=== PATIENT | female | born 1990 | race Hispanic/Latino ===

== ENCOUNTER 2018-02-03 12:45 | Inpatient (IN) | payer MEDICAID ==
[~2018-02-03] VITALS: Ht 162.6 cm; Wt 83.0 kg
[~2018-02-03 12:45] MED LIST: FLUC100T8 PO; GLIP5TAB PO; LISI-617 PO; METF500T PO
[2018-02-03] MEDS ORDERED: LACTATED RINGERS 1000ML 1,000 ML IV PRN (13:14)
[2018-02-03 13:25] LABS: BASOPHILS % (AUTO) 0.3 % (0.0-5.0); EOSINOPHILS % (AUTO) 1.1 % (0.0-8.0); HEMATOCRIT 34.5 % (36-48); LYMPHOCYTES % (AUTO) 23.2 % (21.0-51.0); MEAN CORPUSCULAR HEMOGLOBIN 29.4 pg (27.0-33.0); MEAN CORPUSCULAR HGB CONC 34.1 g/dL (32.0-36.0); MEAN CORPUSCULAR VOLUME 86.2 fL (79-99); MONOCYTES % (AUTO) 5.6 % (3.0-13.0); NEUTROPHILS % (AUTO) 69.8 % (40.0-77.0); PLATELET COUNT (AUTO) 283 K/uL (130-400); RED BLOOD CELL COUNT(AUTO) 4.01 MIL/uL (4.00-5.50); WHITE BLOOD COUNT (AUTO) 9.1 K/uL (4.8-10.8)
[2018-02-03 13:29] LABS: APPEARANCE,URINE Clear (CLEAR); BILIRUBIN,URINE Negative (NEGATIVE); COLOR,URINE Yellow (YELLOW); GLUCOSE, URINE (UA) Negative (NEGATIVE); KETONES,URINE Trace mg/dL (NEGATIVE); LEUKOCYTE ESTERASE ,URINE Small (NEGATIVE); NITRATE,URINE Negative (NEGATIVE); OCCULT BLOOD,URINE Moderate (NEGATIVE); PROTEIN,URINE 300 (NEGATIVE)
[2018-02-03 13:32] LABS: CREATININE 0.7 mg/dL (0.5-1.5); POTASSIUM 3.8 mmol/L (3.5-5.1)
[2018-02-03 13:34] LABS: INR 0.89 (0.85-1.15); PARTIAL THROMBOPLASTIN TIME 26.2 SEC (26.3-35.5); PROTHROMBIN TIME 9.4 SEC (9.6-11.6)
[2018-02-03 13:35] LABS: AMPHET/METH SCREEN,URINE NEGATIVE (NEGATIVE); BARBITURATE SCREEN, URINE NEGATIVE (NEGATIVE); BENZODIAZEPINES SCREEN,URINE NEGATIVE (NEGATIVE); CANNABINOID SCREEN,URINE NEGATIVE (NEGATIVE); COCAINE SCREEN,URINE NEGATIVE (NEGATIVE); OPIATE SCREEN,URINE NEGATIVE (NEGATIVE); PHENCYCLIDINE SCREEN,URINE NEGATIVE (NEGATIVE)
[2018-02-03 13:40] LABS: ALBUMIN 2.4 g/dL (3.5-5.0); BILIRUBIN,TOTAL 0.3 mg/dL (0.2-1.0); TOTAL PROTEIN, SERUM 7.2 g/dL (6.0-8.3); URIC ACID 4.7 mg/dL (2.6-7.2)
[2018-02-03] MEDS ORDERED: MAGNESIUM SULFATE 1,000 ML IV PRN ×2 (13:48→16:39)
[2018-02-03] MEDS ORDERED: LACTATED RINGERS 1000ML 1,000 ML IV SCH ×4 (13:48→16:39)
[2018-02-03 13:54] LABS: RBC,URINE TNTC /HPF (0-1)
[2018-02-03 13:55] LABS: BACTERIA,URINE Rare /HPF (None Seen); SQUAMOUS EPITHELIAL CELL,UR Few /HPF (0-2)
[2018-02-03] MEDS ORDERED: PHARMACY COMMUNICATION MISC SCH (14:00)
[2018-02-03] MEDS ORDERED: CELESTONE SOLUSPAN 6 MG/ML 5ML VIAL IM SCH (14:00)
[2018-02-03] MEDS ORDERED: CALCIUM GLUCONATE 1 GM/10 ML VIAL IVP PRN ×2 (14:00→16:45)
[2018-02-03] MEDS ORDERED: MAGNESIUM 4GM PREMIX 100ML 100 ML IV PRN ×2 (14:00→16:45)
[2018-02-03] MEDS ORDERED: LABETALOL HCL 5 MG/ML 20ML VIAL IV ONE (14:07)
[2018-02-03] MEDS ORDERED: LABETALOL HCL 5 MG/ML 20ML VIAL IV SCH (14:15)
[2018-02-03] MEDS ORDERED: CEFAZOLIN SODIUM 1 GM VIAL ONE (15:27)
[2018-02-03] MEDS ORDERED: CEFAZOLIN SODIUM 1 GM VIAL IVP PRN (15:30)
[2018-02-03] MEDS ORDERED: DURAMORPH PF1 MG/ML 10ML AMP IV ONE (15:34)
[2018-02-03] MEDS ORDERED: SENSORCAINE/DEXT/PF 0.75% 2ML AMP IJ ONE (15:34)
[2018-02-03 15:42] LABS: HEMOGLOBIN A1C 7.8 % (4.0-6.0)
[2018-02-03] MEDS ORDERED: CARBOPROST TROMETHAMINE 250 MCG/ML AMP IM ONE (15:53)
[2018-02-03] MEDS ORDERED: DEXAMETHASONE SOD PHOSPHATE 10MG/ML 1ML VIAL ONE (16:19)
[2018-02-03] MEDS ORDERED: OXYTOCIN 10 USP UNITS/ML ONE (16:19)
[2018-02-03] MEDS ORDERED: OXYTOCIN-LR 20 UNITS/1000 ML 1,000 ML IV PRN (16:39)
[2018-02-03] MEDS ORDERED: PROMETHAZINE HCL 25 MG/ML 1ML AMPULE IM PRN ×2 (16:45→19:00)
[2018-02-03] MEDS ORDERED: MEPERIDINE-PF 75 MG/ML SYG IM PRN (16:45)
[2018-02-03] MEDS ORDERED: LABETALOL HCL 5 MG/ML 20ML VIAL IV PRN (16:45)
[2018-02-03] MEDS ORDERED: OXYTOCIN 10 USP UNITS/ML IV PRN (16:45)
[2018-02-03] MEDS ORDERED: CALDOLOR 800MG+NS 250ML 250 ML IV ONE (16:58)
[2018-02-03] MEDS ORDERED: LABETALOL 20 MG/4 ML DISP.SYRIN IV PRN (17:00)
[2018-02-03] MEDS: INSULIN HUMULIN R 100 UNIT/ML 3ML SQ SCH ×2 (17:11→23:00)
[2018-02-03] MEDS ORDERED: ONDANSETRON HCL MDV 20ML 2 MG/ML VIAL IVP PRN ×2 (19:00)
[2018-02-03] MEDS ORDERED: MORPHINE SULFATE 4 MG/1ML SYG IVP PRN (19:00)
[2018-02-03] MEDS ORDERED: METOCLOPRAMIDE 10 MG/2 ML VIAL IVP PRN (19:00)
[2018-02-03] MEDS ORDERED: HYDROCODONE/ACETAMINOPHEN 5/325 MG TAB PO PRN ×2 (19:00)
[2018-02-03] MEDS ORDERED: DiphenhydrAMINE HCL 50 MG/ML VIAL IVP PRN (19:00)
[2018-02-03] MEDS ORDERED: EPHEDRINE SULFATE 50 MG/ML AMPULE IVP PRN (19:00)
[2018-02-03] MEDS ORDERED: NALOXONE HCL 0.4 MG/1 ML ML IVP PRN ×2 (19:00)
[2018-02-03] MEDS ORDERED: MORPHINE SULFATE 2 MG/ML 1ML SYG IVP PRN (19:00)
[2018-02-03] MEDS ORDERED: ONDANSETRON HCL 4 MG/2 ML 8 MG in SODIUM CHLORIDE 0.9% 50 ML IVP NR (19:00)
[2018-02-04] VITALS (11 sets, daily range): BP systolic 113–166; BP diastolic 70–98
[2018-02-04] MEDS: CALDOLOR 800MG+NS 250ML 250 ML IV SCH ×2 (00:43→08:30)
[2018-02-04] MEDS: INSULIN HUMULIN R 100 UNIT/ML 3ML SQ SCH ×3 (04:57→21:40)
[2018-02-04 06:49] LABS: HEMATOCRIT 32.4 % (36-48); MEAN CORPUSCULAR HEMOGLOBIN 29.6 pg (27.0-33.0); MEAN CORPUSCULAR HGB CONC 33.9 g/dL (32.0-36.0); MEAN CORPUSCULAR VOLUME 87.3 fL (79-99); PLATELET COUNT (AUTO) 274 K/uL (130-400); RED BLOOD CELL COUNT(AUTO) 3.71 MIL/uL (4.00-5.50); RED CELL DISTRIBUTION WIDTH 13.5 % (11.0-15.5); WHITE BLOOD COUNT (AUTO) 10.7 K/uL (4.8-10.8)
[2018-02-04 07:33] LABS: RAPID PLASMA REAGIN NONREACTIVE (NONREACTIVE)
[2018-02-04 07:37] LABS: HEPATITIS Bs ANTIGEN SCREEN P Negative (Negative)
[2018-02-04] MEDS ORDERED: LANOLIN 30GM OINTMENT TP PRN (10:00)
[2018-02-04] MEDS ORDERED: BISACODYL 10 MG SUPP.RECT RC PRN (10:00)
[2018-02-04] MEDS: IBUPROFEN 800 MG TAB PO SCH ×2 (10:00→16:39)
[2018-02-04] MEDS ORDERED: DIPHENHYDRAMINE HCL 25 MG CAPSULE PO PRN (10:00)
[2018-02-04] MEDS: DIPH,PERTUSS(ACELL),TET VAC/PF 0.5 ML VIAL IM SCH (12:40)
[2018-02-04] MEDS: MEASLES/MUMPS/RUBELLA VACCINE, LIVE 0.5 ML/VIAL SQ SCH (12:41)
[2018-02-04] MEDS: SIMETHICONE 80 MG TAB.CHEW PO PRN ×2 (15:02→21:31)
[2018-02-04] MEDS: DOCUSATE SODIUM 100 MG CAP PO SCH (21:29)
[2018-02-05] MEDS: IBUPROFEN 800 MG TAB PO SCH ×2 (02:55→13:22)
[2018-02-05 03:13] VITALS: BP 139/81
[2018-02-05] MEDS: INSULIN HUMULIN R 100 UNIT/ML 3ML SQ SCH ×2 (07:30→11:30)
[2018-02-05 07:50] VITALS: BP 146/90
[2018-02-05] MEDS: SIMETHICONE 80 MG TAB.CHEW PO PRN ×2 (08:02→13:23)
[2018-02-05] MEDS: DOCUSATE SODIUM 100 MG CAP PO SCH (08:02)
[2018-02-05] MEDS: DIPH,PERTUSS(ACELL),TET VAC/PF 0.5 ML VIAL IM SCH (10:00)
[2018-02-05] MEDS: MEASLES/MUMPS/RUBELLA VACCINE, LIVE 0.5 ML/VIAL SQ SCH (10:00)
[2018-02-05 11:26] VITALS: BP 154/93
[2018-03-10] MEDS ORDERED: LABE200T5 PO (14:46)
[2018-03-10] MEDS ORDERED: NPH,100V SQ (15:48)
[2018-03-10] MEDS ORDERED: INSU100V3 SQ (15:48)
== END 2018-02-05 14:05 | disposition home or self-care (01) | DRG 540 ==
LOC: EDH 12:45 → LDH 13:04 → OBSVTOIN 13:57 → WSH 02-04 09:31
PROVIDERS: ADMIT Obstetrics & Gynecology; ATTEND Obstetrics & Gynecology
PROC: 3E0134Z Introduction of Serum, Toxoid and Vaccine into Subcutaneous Tissue, Percutaneous Approach (ICD-10-PCS; 2018-02-03)
PROC: 3E0234Z Introduction of Serum, Toxoid and Vaccine into Muscle, Percutaneous Approach (ICD-10-PCS; 2018-02-03)
PROC: 10D00Z1 Extraction of Products of Conception, Low, Open Approach (ICD-10-PCS; principal; 2018-02-03 15:31)
DX: O14.14 Severe pre-eclampsia complicating childbirth (principal); E11.65 Type 2 diabetes mellitus with hyperglycemia; O41.00X0 Oligohydramnios, unspecified trimester, not applicable or unspecified; O62.2 Other uterine inertia; O69.81X0 Labor and delivery complicated by cord around neck, without compression, not applicable or unspecified; Z37.0 Single live birth; Z3A.29 29 weeks gestation of pregnancy; Z23 Encounter for immunization
CPT/HCPCS: 36415; 59510; 76805; 80053; 80305; 81001; 82948; 83036; 83735; 84439; 84443; 84550; 85025; 85027; 85384; 85610; 85730; 86038; 86215; 86235; 86592; 86701; 86850; 86900; 86901; 87340; 87390; 88307; 90707; 90715; A4344; A4606; J0690; J0702; J1100; J1741; J1815; J2274; J2590; J3475; J3490; J7120

== ENCOUNTER 2018-03-11 05:30 | Day surgery (SDC) | payer MEDICAID ==
[2018-03-10 14:14] LABS: BASOPHILS % (AUTO) 0.4 % (0.0-5.0); EOSINOPHILS % (AUTO) 0.8 % (0.0-8.0); HEMATOCRIT 37.1 % (36-48); LYMPHOCYTES % (AUTO) 24.4 % (21.0-51.0); MEAN CORPUSCULAR HGB CONC 32.9 g/dL (32.0-36.0); MEAN CORPUSCULAR VOLUME 84.9 fL (79-99); MONOCYTES % (AUTO) 4.7 % (3.0-13.0); NEUTROPHILS % (AUTO) 69.7 % (40.0-77.0); PLATELET COUNT (AUTO) 318 K/uL (130-400); RED BLOOD CELL COUNT(AUTO) 4.37 MIL/uL (4.00-5.50); RED CELL DISTRIBUTION WIDTH 14.3 % (11.0-15.5); WHITE BLOOD COUNT (AUTO) 9.1 K/uL (4.8-10.8)
[2018-03-10 14:22] LABS: CREATININE 0.9 mg/dL (0.5-1.5)
[2018-03-10 14:23] VITALS: BP 186/106
[2018-03-11] VITALS (14 sets, daily range): BP systolic 136–174; BP diastolic 86–114
[~2018-03-11] VITALS: Ht 162.6 cm; Wt 84.1 kg
[~2018-03-11 05:30] MED LIST changes: -FLUC100T8 PO; -GLIP5TAB PO; +INSU100V3 SQ; +LABE200T5 PO; -LISI-617 PO; -METF500T PO; +NPH,100V SQ
[2018-03-11] MEDS ORDERED: ONDANSETRON HCL MDV 20ML 2 MG/ML VIAL ONE (06:08)
[2018-03-11] MEDS ORDERED: LIDOCAINE HCL 4% LTA SOL 4 ML VIAL ONE (06:08)
[2018-03-11] MEDS ORDERED: NEOSTIGMINE 5MG/5ML SYR IV ONE (06:08)
[2018-03-11] MEDS ORDERED: SODIUM CHLORIDE 0.9% 10 ML VIAL ONE (06:08)
[2018-03-11] MEDS ORDERED: DEXAMETHASONE SOD PHOSPHATE 10MG/ML 1ML VIAL ONE (06:08)
[2018-03-11] MEDS ORDERED: LIDOCAINE PF 2% 5ML ABBOJECT ONE (06:08)
[2018-03-11] MEDS ORDERED: GLYCOPYRROLATE 0.2 MG/ML 5 ML VIAL ONE (06:08)
[2018-03-11] MEDS ORDERED: LIDOCAINE HCL 2% JELLY 5 ML ONE (06:08)
[2018-03-11] MEDS ORDERED: LIDOCAINE HCL MPF 1% 5ML VIAL ONE (06:08)
[2018-03-11] MEDS ORDERED: ROCURONIUM BROMIDE 10MG/1ML 5ML VL ONE (06:08)
[2018-03-11] MEDS ORDERED: MIDAZOLAM HCL 1 MG/ML 2ML VIAL ONE (06:09)
[2018-03-11] MEDS ORDERED: FENTANYL CITRATE PF 50 MCG/1 ML 2ML VIAL ONE (06:09)
[2018-03-11] MEDS ORDERED: PROPOFOL 10 MG/ML 20ML VIAL IV ONE (06:09)
[2018-03-11] MEDS ORDERED: OCTYL 2-CYANOACRYLATE 1 EACH TP ONE (06:15)
[2018-03-11] MEDS ORDERED: BUPIVACAINE/PF 0.5% 30ML VIAL ONE (06:15)
[2018-03-11] MEDS ORDERED: SODIUM CHLORIDE 0.9% 1000ML 1,000 ML IV ONE (06:50)
[2018-03-11] MEDS ORDERED: CALDOLOR 800MG+NS 250ML 250 ML IV ONE (06:50)
[2018-03-11] MEDS ORDERED: CEFAZOLIN SODIUM 1 GM VIAL ONE (06:50)
[2018-03-11] MEDS ORDERED: LACTATED RINGERS 1000ML 1,000 ML IV SCH (08:00)
[2018-03-11] MEDS ORDERED: CEFAZOLIN SODIUM 1 GM VIAL IVP ONE (08:00)
[2018-03-11] MEDS ORDERED: WATER FOR INJECTION,STERILE 20 ML VIAL IJ ONE (08:00)
[2018-03-11] MEDS ORDERED: LABETALOL HCL 5 MG/ML 20ML VIAL IV ONE (10:02)
[2018-03-11] MEDS ORDERED: MEPERIDINE-PF 25 MG/ML SYG ONE ×2 (10:30→10:47)
== END 2018-03-11 12:20 | disposition home or self-care (01) ==
LOC: DAH 05:30
PROVIDERS: ATTEND Obstetrics & Gynecology
DX: Z30.2 Encounter for sterilization (principal); I10 Essential (primary) hypertension; E11.9 Type 2 diabetes mellitus without complications; E66.9 Obesity, unspecified
CPT/HCPCS: 36415; 58670; 80048; 82948 ×2; 84703; 85025; 86850; 86900; 86901; A4215; A4218; A4351; A4510; A4600; C1769 ×2; J0690; J1100; J1741; J2001; J2175 ×2; J2250; J2704; J2710; J3010; J3490 ×5; J7030 ×2